=== PATIENT | female | born 1940 | race Caucasian/White ===

== ENCOUNTER → 2017-08-05 | Day surgery (SDC) | payer OTHER ==
[2017-07-23 11:29] LABS: BASOPHILS % 0.2 % (0.0-1.0); EOSINOPHILS # (AUTO) 0.1 (0.0-0.4); EOSINOPHILS % 1.5 % (0.0-6.0); HEMATOCRIT 39.4 % (34.2-44.1); HEMOGLOBIN 11.7 g/dL (12.0-16.0); LYMPHOCYTES # (AUTO) 2.1 (1.0-3.2); MEAN CORPUSCULAR HEMOGLOBIN 26.7 pg (28-32); MEAN CORPUSCULAR HGB CONC 29.7 g/dL (31-35); MONOCYTES # (AUTO) 0.5 (0.2-0.8); MONOCYTES % 5.1 % (4.4-11.3); NEUTROPHILS # (AUTO) 6.1 (2.1-6.9); PLATELET COUNT 129 x10e3/uL (140-360); RED BLOOD COUNT 4.38 x10e6/uL (3.6-5.1); RED CELL DISTRIBUTION WIDTH 17.2 % (11.7-14.4)
[~2017-08-05] MED LIST: AMLODIPINE BESY10 MG PO; FUROSEMIDE40 MG PO; GABAPENTIN300 MG PO; GARLIC PO; GLIPIZIDE5 MG PO; KETAMINE HCL INJ 50 MG/ML 10 ML VIAL ONE; LEVOTHYROXINE88 MCG PO; LISINOPRIL10 MG PO; METFORMIN HCL500 MG PO; MIDAZOLAM HCL 2 MG/2 ML VIAL ONE; PLAVIX75 MG PO; POTASSIUM CHLO20 ME1 PO; PROPOFOL IV EMULSION 10 MG/ML 20 ML VIAL ONE; ROPINIROLE HCL1 MG PO; VIT B 12 PO; VIT C PO; VIT D 3 PO
--- NOTE | 2017-08-05 13:43 | Operative Report ---
DATE OF PROCEDURE: August 05, 2017 PROCEDURE PERFORMED: Colonoscopy. PREOPERATIVE DIAGNOSIS: History of colon polyps, change in bowel habits. POSTOPERATIVE DIAGNOSES 1. 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 2. Benign polyp in the sigmoid colon. 3. Diverticulosis. 4. Internal hemorrhoids. PREOPERATIVE MEDICATION: Consisted of MAC anesthesia. PROCEDURE: Using the [employer] video colonoscope, was inserted in the patient's rectum and advanced without difficulty to the level of the cecum. The ileocecal valve and the appendix were identified and photographed. Right in front of the ileocecal valve is a 3 cm size polypoid mass that was biopsied. It appears to be a malignancy. The rest of the cecum appeared to be normal. The colonoscope was withdrawn from that level back down to the rectum and the sigmoid colon a 5 mm size polyp was found and removed with hot biopsy forceps. Scattered diverticula were in the sigmoid, descending colon without evidence of a diverticulitis and internal hemorrhoids were present. The colonoscope was withdrawn from the patient's rectum and the procedure was ended. In conclusion, we have a large polypoid mass probably a malignancy in the cecum, benign polyp removed from the sigmoid colon, diverticulosis and internal hemorrhoids. Job#: [id number] LISA
== END | disposition home or self-care (01) ==
LOC: OR 07:26
PROVIDERS: ATTEND Internal Medicine Gastroenterology
DX: C18.0 Malignant neoplasm of cecum (principal); D12.5 Benign neoplasm of sigmoid colon; K63.5 Polyp of colon; I25.10 Atherosclerotic heart disease of native coronary artery without angina pectoris; I10 Essential (primary) hypertension; E11.9 Type 2 diabetes mellitus without complications; R14.0 Abdominal distension (gaseous); K59.00 Constipation, unspecified; K57.30 Diverticulosis of large intestine without perforation or abscess without bleeding; K64.8 Other hemorrhoids; Z01.810 Encounter for preprocedural cardiovascular examination; Z01.812 Encounter for preprocedural laboratory examination; Z88.6 Allergy status to analgesic agent; Z88.1 Allergy status to other antibiotic agents; Z88.2 Allergy status to sulfonamides; Z88.8 Allergy status to other drugs, medicaments and biological substances
CPT/HCPCS: 36415; 45380; 45384; 85025; 93005; J2250

== ENCOUNTER → 2017-08-20 | Outpatient (CLI) | payer OTHER ==
[~2017-08-20] MED LIST changes: +DIATRIZOATE MEGL/DIATRIZOA SOD 30 ML BTL PO ONE; +IOPAMIDOL 370 MG/ML 200 ML INFUS..BTL INJ ONE; -KETAMINE HCL INJ 50 MG/ML 10 ML VIAL ONE; -MIDAZOLAM HCL 2 MG/2 ML VIAL ONE; -PROPOFOL IV EMULSION 10 MG/ML 20 ML VIAL ONE; +SODIUM CHLORIDE 0.9% 50ML 50 ML ONE
[2017-08-20 07:40] LABS: BLOOD UREA NITROGEN 22 mg/dL (7-26); BUN/CREATININE RATIO 28 (6-25); CREATININE, SERUM 0.78 mg/dL (0.57-1.11); EST GLOMERULAR FILTRATION RATE > 60 ML/MIN (60-)
--- NOTE | 2017-08-20 08:42 | Diagnostic Imaging Report ---
PROCEDURE: CT ABDOMEN AND PELVIS WITH CONTRAST TECHNIQUE: The abdomen and pelvis were scanned utilizing a multidetector helical scanner from the diaphragm to the lesser trochanter after the IV administration of 100 cc of Isovue 370 and the oral administration of Gastrografin. Coronal and sagittal multiplanar reformations were obtained. COMPARISON: None. INDICATIONS: DIVERTICULITIS OF LARGE INTESTINE. Patient reports history of recent colonoscopy with identification of a tumor in the large bowel. FINDINGS: LOWER THORAX: Linear scar in the right middle lobe. Lung bases are otherwise unremarkable. No pleural or pericardial effusion.. HEPATOBILIARY: No focal hepatic lesion or intrahepatic biliary ductal dilatation. Multiple radiopaque calculi are identified within the gallbladder without wall thickening or pericholecystic inflammation. SPLEEN: No splenomegaly. PANCREAS: No focal masses or ductal dilatation. ADRENALS: No adrenal nodules. KIDNEYS/URETERS: No hydronephrosis or gross mass lesion. 4 mm nonobstructing calculus in the left interpolar region best seen on series 301, image 73. Calcification along side the distal right ureter seen on series 2 image 71 is felt to represent a phlebolith. PELVIC ORGANS/BLADDER: Punctate focus of air in the urinary bladder which may relate to Moon catheter placement or other recent instrumentation. Uterus is not identified and has presumably been removed. No adnexal mass. PERITONEUM / RETROPERITONEUM: No ascites or pneumoperitoneum. LYMPH NODES: No pelvic sidewall, retroperitoneal, or mesenteric adenopathy. VESSELS: Atherosclerotic calcification of the abdominal aorta, major branch vessels, and iliac arterial systems without aneurysmal dilatation. Varices within the splenic hilum are incidentally noted.. Portal vein and a central superior mesenteric vein are patent. GI TRACT: There are innumerable diverticula along the sigmoid colon without evidence of wall thickening or adjacent inflammation.. The large bowel is otherwise unremarkable. The appendix is not identified and may have been removed. The stomach is collapsed with prominent rugal folds. No small bowel dilatation to suggest obstruction. BONES AND SOFT TISSUES: No focal soft tissue abnormalities. Dystrophic calcification in the subcutaneous tissues of the right gluteal region. Healed fracture deformities of several right-sided ribs partially visualized. Multilevel degenerative disc changes of the lumbar spine. IMPRESSION: Large bowel diverticulosis without findings of diverticulitis. No mass lesion is identified within the large bowel to correspond to the reported endoscopically identified mass. Cholelithiasis. Nonobstructing left renal calculus. Atherosclerotic vascular disease. Dictated by: Caden Alcazar M.D. on 08/20/2017 at 8:46 Electronically approved by: Caden Alcazar M.D. on 08/20/2017 at 8:46
== END ==
LOC: CT 06:21
PROVIDERS: ATTEND Internal Medicine Gastroenterology
DX: K57.30 Diverticulosis of large intestine without perforation or abscess without bleeding (principal)
CPT/HCPCS: 36415; 74177; 82565; 84520; Q9967